=== PATIENT | female | born 1970 | race Caucasian/White ===

== ENCOUNTER 2017-03-27 08:27 | Emergency (ER) | payer OTHER ==
[2017-03-27] MEDS ORDERED: Ondansetron TAB* 4 MG PO ONE (09:00)
[2017-03-27 09:17] LABS: ABS Basophils 0.1 10^3/ul (0-0.2); ABS Eosinophils 0.2 10^3/ul (0-0.6); ABS Neutrophils 7.9 10^3/ul (1.5-7.7); ABS Nucleated RBC 0 10^3/ul; Eosinophil % 1.5 % (0-6); Hematocrit 38 % (35-47); Hemoglobin 12.5 g/dl (12.0-16.0); Lymphocyte % 17.9 % (25-47); Mean Corpuscular HGB Conc 33 g/dl (31-36); Mean Corpuscular Hemoglobin 28 pg (27-31); Mean Corpuscular Volume 85 fL (80-97); Mean Platelet Volume 7 um3 (7.4-10.4); Nucleated Red Blood Cells % 0.1; Platelet Count 355 10^3/ul (150-450); Red Blood Count 4.46 10^6/ul (4.0-5.4); Red Cell Distribution Width 14 % (10.5-15); White Blood Count 11.2 10^3/ul (3.5-10.8)
[2017-03-27 09:36] LABS: INR 0.9 (0.77-1.02)
[2017-03-27 09:45] LABS: EGFR Non-African American 78.8 (>60)
[2017-03-27] MEDS ORDERED: Iohexol 300* (CONTRAST) 10 ML SDV IV ONE (10:54)
[2017-03-27 11:34] LABS: Urine Appearance Clear; Urine Blood 1+ (Negative); Urine Color Straw; Urine Ketones Negative (Negative); Urine Protein Negative (Negative); Urine Specific Gravity 1.011 (1.010-1.030); Urine Urobilinogen Negative (Negative)
--- NOTE | 2017-03-27 11:44 | RAD ---
INDICATION: Left lower quadrant abdominal pain. COMPARISON: There are no prior studies available for comparison. TECHNIQUE: A CT scan of the abdomen and pelvis was performed with intravenous and oral contrast following intravenous injection of 121 ml of Omnipaque 300 nonionic contrast. Contiguous axial sections were obtained from the lung bases through the symphysis pubis. Images were reconstructed in the coronal and sagittal planes. FINDINGS: There is mild dependent bilateral lower lobe subsegmental atelectasis. No pleural effusion is present. The liver and spleen are normal in size without significant focal abnormality. The liver is decreased in attenuation consistent with fatty infiltration. No calcified gallstones are noted. The pancreas appears to be within normal limits. The kidneys and adrenal glands are normal in size. No hydronephrosis is seen. No significant focal renal abnormality is seen. The aorta is normal in caliber and demonstrates homogeneous contrast opacification. No significant enlarged retroperitoneal lymph nodes are seen. There is a small hiatal hernia. The stomach, small and large bowel appear nondistended. The patient is status post appendectomy by history. There is mild descending and sigmoid diverticulosis. In addition there is a focal area of wall thickening in the distal descending colon with interstitial stranding in the adjacent mesenteric fat and a small amount of adjacent free intraperitoneal fluid in the left paracolic gutter. These findings are nonspecific although most consistent with diverticulitis. No abscess is seen. No free intraperitoneal air is seen. The patient is status post hysterectomy. There is an oval-shaped structure with several small cystic areas adjacent to the proximal sigmoid colon likely representing a remaining left ovary measuring 4.4 x 2.8 x 2.4 cm in size. No significant focal osseous abnormality is seen. IMPRESSION: 1. FINDINGS MOST CONSISTENT WITH DIVERTICULITIS INVOLVING THE DISTAL DESCENDING COLON. 2. STATUS POST HYSTERECTOMY. THERE IS A SMALL MULTICYSTIC STRUCTURE ADJACENT TO THE PROXIMAL SIGMOID COLON LIKELY REPRESENTING THE LEFT OVARY. RECOMMEND CORRELATION WITH THE PATIENT'S SURGICAL HISTORY. IF THERE IS UNCERTAINTY THIS CAN BE FURTHER EVALUATED WITH A PELVIC ULTRASOUND. 3. HEPATIC STEATOSIS.
[2017-03-27] MEDS ORDERED: Ciprofloxacin 400MG IVPREMIX(* 400 MG/200 ML BAG IVPB ONE (13:23)
[2017-03-27] MEDS ORDERED: metroNIDAZOLE IV 500 MG/100ML* 500 MG/100 ML BAG IVPB ONE (13:23)
[2017-03-27] MEDS ORDERED: Acetaminophen TAB* 325 MG PO ONE (13:25)
[2017-03-27] MEDS ORDERED: Acetaminophen TAB* 325 MG ONE (13:26)
--- NOTE | 2017-03-27 15:24 | ED ---
Benjy Gomez Natalie, scribed for Sharath Johns MD on 03/27/17 at 0906 . Abdominal Pain/Female - HPI Summary HPI Summary: The pt is a 46 y/o F presenting to the ED c/o constant LLQ abd pain worsening in the last week. The pain started as back pain a few months ago, but started moving towards her left lower abd. The pain is described as cramping and feeling like labor pains. The pain is rated 7/10. The pain is aggravated by movement and is alleviated by nothing. The pt has taken Aleve DIDACTIC INSTRUCTOR to no relief. Pt additionally c/o fever (on 03/22/17), vomiting (once after eating), pelvic tenderness, and constipation. Pt denies dysuria and hematuria. She has had two hysterectomies, but still has left ovary, and a cholecystectomy. - History of Current Complaint Chief Complaint: EDAbdPain Stated Complaint: LOWER ABD PAIN Hx Obtained From: Patient Onset/Duration: Gradual Onset, Lasting Days, Still Present Timing: Constant Severity Initially: Moderate Severity Currently: Moderate Pain Intensity: 7 Pain Scale Used: 0-10 Numeric Location: Discrete At: LLQ Radiates: Yes Radiates to: Back Character: Cramping, Other: - "feeling like labor pains" Aggravating Factor(s): Movement Alleviating Factor(s): Nothing Associated Signs and Symptoms: Positive: Fever, Back Pain, Constipation, Vomiting, Other: - POSITIVE: pelvic tenderness; NEGATIVE: dysuria, hematuria Allergies/Adverse Reactions: Allergies Allergy/AdvReac Type Severity Reaction Status Date / Time Menthol Allergy Severe Anaphylatic Verified 03/27/17 08:33 [From Robitussin Liquid Head Shock & Chest Celio] Phenylephrine Allergy Severe Anaphylatic Verified 03/27/17 08:33 [From Robitussin Liquid Head Shock & Chest Celio] Propylene Glycol Allergy Severe Anaphylatic Verified 03/27/17 08:33 [From Robitussin Liquid Head Shock & Chest Celio] Red Dye Allergy Severe Anaphylatic Verified 03/27/17 08:33 [From Robitussin Liquid Head Shock & Chest Celio] Sodium Benzoate Allergy Severe Anaphylatic Verified 03/27/17 08:33 [From Robitussin Liquid Head Shock & Chest Celio] PMH/Surg Hx/FS Hx/Imm Hx Previously Healthy: Yes Opthamlomology History: Denies: Hx Legally Blind EENT History: Denies: Hx Deafness - Immunization History Immunizations Up to Date: Yes Infectious Disease History: No Infectious Disease History: Denies: Traveled Outside the [place] in Last 30 Days - Family History Known Family History: Positive: Other - hypercholesterolemia Negative: Cardiac Disease, Hypertension, Diabetes - Social History Alcohol Use: None Substance Use Type: Reports: None Smoking Status (MU): Never Smoked Tobacco Review of Systems Positive: Fever Positive: Abdominal Pain - LLQ, Vomiting, Other - constipation Negative: dysuria, hematuria Positive: Other - left back pain All Other Systems Reviewed And Are Negative: Yes Physical Exam - Summary Physical Exam Summary: Appearance: Well-appearing, Well-nourished, No acute distress Skin: Warm, dry Eyes: Normal ENT: Normal, Moist mucous membranes Neck: Supple, nontender Respiratory: Lungs clear to auscultation bliaterally Cardiovascular: Normal, No rubs or murmurs Abdomen: Soft, Moderate tenderness to LLQ without rebound or guarding, No masses present Bowel: Present Musculoskeletal: Normal, Strength/ROM Intact, No CVA tenderness bilaterally Neurological: Normal, A&Ox3, Normal strength and sensation in all four extremities Psychiatric: Normal Triage Information Reviewed: Yes Vital Signs On Initial Exam: Initial Vitals Temp Pulse Resp BP Pulse Ox 98.0 F 82 16 124/93 100 03/27/17 08:29 03/27/17 08:29 03/27/17 08:29 03/27/17 08:29 03/27/17 08:29 Vital Signs Reviewed: Yes - [place] Coma Scale Coma Scale Total: 15 Diagnostics - Vital Signs Vital Signs Temp Pulse Resp BP Pulse Ox 03/27/17 08:46 99.6 F 70 18 112/77 03/27/17 08:29 98.0 F 82 16 124/93 100 - Laboratory Lab Results: Lab Results 03/27/17 03/27/17 03/27/17 Range/Units 09:06 09:06 09:06 WBC 11.2 H (3.5-10.8) 10^3/ul RBC 4.46 (4.0-5.4) 10^6/ul Hgb 12.5 (12.0-16.0) g/dl Hct 38 (35-47) % MCV 85 (80-97) fL MCH 28 (27-31) pg MCHC 33 (31-36) g/dl RDW 14 (10.5-15) % Plt Count 355 (150-450) 10^3/ul MPV 7 L (7.4-10.4) um3 Neut % (Auto) 70.8 (38-83) % Lymph % (Auto) 17.9 L (25-47) % [place] % (Auto) 9.3 H (1-9) % Eos % (Auto) 1.5 (0-6) % Baso % (Auto) 0.5 (0-2) % Absolute Neuts (auto) 7.9 H (1.5-7.7) 10^3/ul Absolute Lymphs (auto) 2.0 (1.0-4.8) 10^3/ul Absolute Monos (auto) 1.0 H (0-0.8) 10^3/ul Absolute Eos (auto) 0.2 (0-0.6) 10^3/ul Absolute Basos (auto) 0.1 (0-0.2) 10^3/ul Absolute Nucleated RBC 0 10^3/ul Nucleated RBC % 0.1 INR (Anticoag Therapy) 0.90 (0.77-1.02) APTT 29.5 (26.0-36.3) seconds Sodium 135 (133-145) mmol/L Potassium 4.0 (3.5-5.0) mmol/L Chloride 103 (101-111) mmol/L Carbon Dioxide 25 (22-32) mmol/L Anion Gap 7 (2-11) mmol/L BUN 14 (6-24) mg/dL Creatinine 0.78 (0.51-0.95) mg/dL Est GFR ( Amer) 101.4 (>60) Est GFR (Non-Af Amer) 78.8 (>60) BUN/Creatinine Ratio 17.9 (8-20) Glucose 100 (70-100) mg/dL Calcium 9.6 (8.6-10.3) mg/dL Magnesium 1.9 (1.9-2.7) mg/dL Total Bilirubin 0.30 (0.2-1.0) mg/dL AST 11 L (13-39) U/L ALT 14 (7-52) U/L Alkaline Phosphatase 60 (34-104) U/L Total Protein 7.5 (6.4-8.9) g/dL Albumin 4.0 (3.2-5.2) g/dL Globulin 3.5 (2-4) g/dL Albumin/Globulin Ratio 1.1 (1-3) Lipase 43 (11.0-82.0) U/L Urine Color Urine Appearance Urine pH (5-9) Ur Specific [place] (1.010-1.030) Urine Protein (Negative) Urine Ketones (Negative) Urine Blood (Negative) Urine Nitrate (Negative) Urine Bilirubin (Negative) Urine Urobilinogen (Negative) Ur Leukocyte Esterase (Negative) Urine WBC (Auto) (Absent) Urine RBC (Auto) (Absent) Urine Bacteria (Absent) Urine Glucose (Negative) 03/27/17 Range/Units 10:00 WBC (3.5-10.8) 10^3/ul RBC (4.0-5.4) 10^6/ul Hgb (12.0-16.0) g/dl Hct (35-47) % MCV (80-97) fL MCH (27-31) pg MCHC (31-36) g/dl RDW (10.5-15) % Plt Count (150-450) 10^3/ul MPV (7.4-10.4) um3 Neut % (Auto) (38-83) % Lymph % (Auto) (25-47) % [place] % (Auto) (1-9) % Eos % (Auto) (0-6) % Baso % (Auto) (0-2) % Absolute Neuts (auto) (1.5-7.7) 10^3/ul Absolute Lymphs (auto) (1.0-4.8) 10^3/ul Absolute Monos (auto) (0-0.8) 10^3/ul Absolute Eos (auto) (0-0.6) 10^3/ul Absolute Basos (auto) (0-0.2) 10^3/ul Absolute Nucleated RBC 10^3/ul Nucleated RBC % INR (Anticoag Therapy) (0.77-1.02) APTT (26.0-36.3) seconds Sodium (133-145) mmol/L Potassium (3.5-5.0) mmol/L Chloride (101-111) mmol/L Carbon Dioxide (22-32) mmol/L Anion Gap (2-11) mmol/L BUN (6-24) mg/dL Creatinine (0.51-0.95) mg/dL Est GFR ( Amer) (>60) Est GFR (Non-Af Amer) (>60) BUN/Creatinine Ratio (8-20) Glucose (70-100) mg/dL Calcium (8.6-10.3) mg/dL Magnesium (1.9-2.7) mg/dL Total Bilirubin (0.2-1.0) mg/dL AST (13-39) U/L ALT (7-52) U/L Alkaline Phosphatase (34-104) U/L Total Protein (6.4-8.9) g/dL Albumin (3.2-5.2) g/dL Globulin (2-4) g/dL Albumin/Globulin Ratio (1-3) Lipase (11.0-82.0) U/L Urine Color Straw Urine Appearance Clear Urine pH 6.0 (5-9) Ur Specific [place] 1.011 (1.010-1.030) Urine Protein Negative (Negative) Urine Ketones Negative (Negative) Urine Blood 1+ H (Negative) Urine Nitrate Negative (Negative) Urine Bilirubin Negative (Negative) Urine Urobilinogen Negative (Negative) Ur Leukocyte Esterase Negative (Negative) Urine WBC (Auto) Absent (Absent) Urine RBC (Auto) Trace(0-2/hpf) (Absent) Urine Bacteria Absent (Absent) Urine Glucose Negative (Negative) Result Diagrams: 03/27/17 09:06 03/27/17 09:06 Lab Statement: Any lab studies that have been ordered have been reviewed, and results considered in the medical decision making process. - CT CT Abd/Pel CT Interpretation: Positive (See Comments) - 1. Findings most consistent with diverticulitis involving the distal descending colon. 2. Status post hysterectomy. There is a small multicystic structure adjacent to the Proximal sigmoid colon likely representing the left ovary. Recommend correlation with the Patient's surgical history. If there is uncertainty this can be further evaluated with a Pelvic ultrasound. 3. Hepatic steatosis. ED physician has reviewed this report. CT Interpretation Completed By: Radiologist Re-Evaluation - Re-Evaluation First Eval Re-Evaluation Time: 14:30 Change: Improved - pain improving, able to tolerate PO Abdominal Pain Fem Course/Dx - Course Course Of Treatment: pt seen to have uncomplicated diverticulitis, feels well, given 1 dose of iv abx and prescription for continuing abx, instructed to return for worsening sxs and to schedule outpatient surgery cilnic appt for elective procedure, agrees to and understnads dc instructions. - Diagnoses Provider Diagnoses: Diverticulitis Discharge - Discharge Plan Condition: Improved Disposition: HOME Prescriptions: Ciprofloxacin TAB* [Cipro 500 MG TAB*] 500 mg PO BID #28 tab Metronidazole [Flagyl 500 MG TAB] 500 mg PO TID #42 tab Patient Education Materials: Diverticulitis (ED) Referrals: Darnell Feliz MD [Primary Care Provider] - Noe Hester MD [Medical Doctor] - Additional Instructions: PLEASE MAKE AN APPOINTMENT WITH GEN SURGEON DR. HESTER FOR ELECTIVE PROCEDURE IF INDICATED PLEASE RETURN IMMEDIATELY TO THE ER IF YOU HAVE ANY WORSENING OR CONCERNING SYMPTOMS PLEASE MAKE AN APPOINTMENT TO BE SEEN BY YOUR PRIMARY CARE DOCTOR WITHIN 1 WEEK The documentation as recorded by the Benjy burgess Natalie accurately reflects the service I personally performed and the decisions made by me, Sharath Johns MD.
[2017-03-27 15:35] VITALS: BP 107/64
== END 2017-03-27 15:34 | disposition home or self-care (01) ==
LOC: ED 08:27
DX: K57.92 Diverticulitis of intestine, part unspecified, without perforation or abscess without bleeding (principal); R50.9 Fever, unspecified; M54.9 Dorsalgia, unspecified; K59.00 Constipation, unspecified; R11.10 Vomiting, unspecified; R10.32 Left lower quadrant pain
CPT/HCPCS: 36415; 74177; 80053; 81003; 81015; 83690; 83735; 85025; 85610; 85730; 96365; 99283; A9270-GY; J0744; J3490; Q9967

== ENCOUNTER 2018-09-01 10:39 | Emergency (ER) | payer OTHER ==
[2018-09-01] MEDS ORDERED: Ibuprofen TAB* 800 MG PO ONE (11:01)
--- NOTE | 2018-09-01 11:05 | ED ---
Lower Extremity - HPI Summary HPI Summary: Patient is a 48-year-old female who presents emergency department for left foot injury that occurred just prior to arrival. Patient works at a [employer] and states that a student. They desk today and landed onto her left foot. No other injuries were sustained. Pain is too great to ambulate. Symptoms are mild in severity. Walking and touching area makes symptoms worse. Nothing makes symptoms better. - History of Current Complaint Chief Complaint: EDExtremityLower Stated Complaint: LEFT FOOT INJURY Time Seen by Provider: 09/01/18 10:56 Hx Obtained From: Patient Pain Intensity: 7 - Allergies/Home Medications Allergies/Adverse Reactions: Allergies Allergy/AdvReac Type Severity Reaction Status Date / Time MS Menthol Allergy Severe Anaphylatic Verified 03/27/17 08:33 [From Robitussin Liquid Head Shock & Chest Celio] MS Phenylephrine Allergy Severe Anaphylatic Verified 03/27/17 08:33 [From Robitussin Liquid Head Shock & Chest Celio] MS Propylene Glycol Allergy Severe Anaphylatic Verified 03/27/17 08:33 [From Robitussin Liquid Head Shock & Chest Celio] MS Red Dye Allergy Severe Anaphylatic Verified 03/27/17 08:33 [From Robitussin Liquid Head Shock & Chest Celio] MS Sodium Benzoate Allergy Severe Anaphylatic Verified 03/27/17 08:33 [From Robitussin Liquid Head Shock & Chest Celio] PMH/Surg Hx/FS Hx/Imm Hx Previously Healthy: Yes Endocrine/Hematology History: Denies: Hx Diabetes Cardiovascular History: Denies: Hx Hypertension History: Denies: Hx Renal Disease Sensory History: Denies: Hx Legally Blind, Hx Deafness Opthamlomology History: Denies: Hx Legally Blind - Surgical History Surgery Procedure, Year, and Place: hysterectomy. x2. appendectomy Infectious Disease History: No Infectious Disease History: Denies: Traveled Outside the [place] in Last 30 Days - Family History Known Family History: Positive: Other - hypercholesterolemia, Non-Contributory Negative: Cardiac Disease, Hypertension, Diabetes - Social History Occupation: Employed Full-time Lives: With Family Alcohol Use: None Substance Use Type: Reports: None Smoking Status (MU): Never Smoked Tobacco Review of Systems Positive: Other - left foot pain and swelling Positive: Other - abrasion to left foot Neurological: Negative Negative: Weakness, Paresthesia, Numbness All Other Systems Reviewed And Are Negative: Yes Physical Exam Triage Information Reviewed: Yes Vital Signs On Initial Exam: Initial Vitals Temp Pulse Resp BP Pulse Ox 97.7 F 82 18 134/81 97 09/01/18 10:44 09/01/18 10:44 09/01/18 10:44 09/01/18 10:44 09/01/18 10:44 Vital Signs Reviewed: Yes Appearance: Positive: Well-Appearing - Pt. sitting in wheelchair in NAD. SO present. Skin: Positive: Warm, Dry Head/Face: Positive: Normal Head/Face Inspection Eyes: Positive: Normal, EOMI, MITUL Neck: Positive: Supple Musculoskeletal: Positive: Other - Moderate edema to the dorsum of left foot with overlying superficial wound. No proximal ankle or tib/fib pain. Neurological: Positive: Normal, CN Intact II-III Psychiatric: Positive: Affect/Mood Appropriate Procedures - Splinting Left Lower Extremity Pre-Made Type: acewrap, post op shoe Pre-Proc Neuro Vasc Exam: normal Diagnostics - Vital Signs Vital Signs Temp Pulse Resp BP Pulse Ox 09/01/18 10:44 97.7 F 82 18 134/81 97 - Laboratory Lab Statement: Any lab studies that have been ordered have been reviewed, and results considered in the medical decision making process. Lower Extremity Course/Dx - Course Course Of Treatment: Foot x-ray is negative for acute findings, reading per radiology. Krish wrap and postop shoe placed. Advised patient to ice and elevate intermittently. Avoid sitting for long periods time. Crutches provided given patient cannot bear full weight. Tylenol or Motrin for pain as directed. Advised patient to follow-up with PCP or orthopedics for repeat imaging in 1-2 weeks if pain persists. Patient understands and agrees. - Diagnoses Differential Diagnosis/HQI/PQRI: Positive: Contusion, Fracture (Closed) Provider Diagnoses: Foot contusion, Abrasion, Hematoma Discharge - Sign-Out/Discharge Documenting (check all that apply): Patient Departure Patient Received Moderate/Deep Sedation with Procedure: No - Discharge Plan Condition: Good Disposition: HOME Patient Education Materials: Foot Contusion (ED), Hematoma (ED) Referrals: Darnell Feliz MD [Primary Care Provider] - Additional Instructions: Follow up with PCP if pain persist for repeat xray in 1-2 weeks Ice and elevate intermittently Tylenol or Motrin for pain as directed Return to ER if symptoms change or worsen - Billing Disposition and Condition Condition: GOOD Disposition: Home - Attestation Statements Provider Attestation: pt seen by midlevel provider independently, based on their assessment, it was not necessary to present the case to me but I was available for consultation. I did not form a physician-patient relationship with the patient. The chart however, has been reviewed.
[2018-09-01 12:16] VITALS: BP 131/80
== END 2018-09-01 12:09 | disposition home or self-care (01) ==
LOC: ED 10:39
DX: S90.32XA Contusion of left foot, initial encounter (principal); S90.812A Abrasion, left foot, initial encounter; W22.8XXA Striking against or struck by other objects, initial encounter; Y92.159 Unspecified place in reform school as the place of occurrence of the external cause; Y99.0 Civilian activity done for income or pay; Z88.8 Allergy status to other drugs, medicaments and biological substances
CPT/HCPCS: 99282; A9270-GY

== ENCOUNTER 2019-05-02 16:23 | Emergency (ER) | payer SELFPAY ==
--- OUTSIDE RECORDS SUMMARY | 2019-05-02 16:39 | XMS REPORT | Continuity of Care Document ---
:1970 External Reference #:[id number] Author Name Larry Finn MD (transmitted by agent of provider Sarah Cosme) Address [address] [place] [address] Care Team Providers Name Role Phone Darnell Feliz MD - Family Care Team Information Save All Operator [phone] Medicine Problems Description No Active Problems Social History Type Date Description Comments Sex Unknown ETOH Use Denies alcohol use Tobacco Use Start: Unknown End: Patient is a former Unknown smoker Tobacco Use Start: Unknown End: Patient is a former Quit 10 years ago Unknown smoker Smoking Status Reviewed: 04/18/19 Patient is a former Quit 10 years ago smoker Exercise Exercises sporadically Type/Frequency Allergies, Adverse Reactions, Alerts Active Allergies Reaction Severity Comments Date Guaifenesin 09/27/2018 Medications Active Medications SIG Qnty Indications Ordering Provider Date Vytorin Unknown 10-10mg Tablets Protonix 1 by mouth every Unknown 20mg Tablets DR day Prozac 1 by mouth every Unknown 20mg Capsules day Rosuvastatin Calcium take 1 tablet by Unknown 10mg mouth every Tablets evening Immunizations Description No Information Available Vital Signs Date Vital Result Comment 04/18/2019 3:52pm Height 64.5 inches 5'4.50" Weight 278.00 lb Heart Rate 62 /min BP Systolic 104 mmHg BP Diastolic 72 mmHg Respiratory Rate 18 /min Pain Level 5 O2 % BldC Oximetry 98 % BMI (Body Mass Index) 47.0 kg/m2 09/27/2018 4:27pm Height 64.5 inches 5'4.50" Weight 184.00 lb Heart Rate 68 /min BP Systolic 112 mmHg BP Diastolic 70 mmHg Respiratory Rate 16 /min BMI (Body Mass Index) 31.1 kg/m2 Results Description No Information Available Procedures Date Code Description Status 04/18/2019 Inject/Drain Joint/Bursa Major W/O US Completed Medical Devices Description No Information Available Encounters Description No Information Available Assessments Date Code Description Provider 04/18/2019 M25.561 Pain in right knee Larry Finn MD 04/18/2019 M25.461 Effusion, right knee Larry Finn MD Plan of Treatment Future Appointment(s):05/30/2019 3:15 pm - Larry Finn MD at [facility] at [facility]04/18/2019 - Larry Finn, MDM25.561 Pain in right kneeNew Xrays:Knee 3 Views RT, Ordered: 04/18/19New Therapy:Physical TherapyFollow up:Follow up: 6 weeks PRNM25.461 Effusion, right knee Functional Status Description No Information Available Mental Status Description No Information Available Referrals Description No Information Available
--- NOTE | 2019-05-02 17:11 | ED ---
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 Denies any other pain, injury or symptoms. - History of Current Complaint Chief Complaint: Kristen Stated Complaint: RIGHT SHOULDER INJURY PER PT Time Seen by Provider: 05/02/19 17:10 Hx Obtained From: Patient Mechanism Of Injury: Other Onset/Duration: Started Hours Ago Timing: Constant Severity Initially: Moderate Severity Currently: Moderate Pain Location: Shoulder Character: Aching, Throbbing Aggravating Factor(s): Movement Alleviating Factor(s): Rest, Ice Associated Signs & Symptoms: Positive: Negative - Allergies/Home Medications Allergies/Adverse Reactions: Allergies Allergy/AdvReac Type Severity Reaction Status Date / Time MS Menthol Allergy Severe Anaphylatic Verified 03/27/17 08:33 [From Robitussin Liquid Head Shock & Chest Celio] MS Phenylephrine Allergy Severe Anaphylatic Verified 03/27/17 08:33 [From Robitussin Liquid Head Shock & Chest Celio] MS Propylene Glycol Allergy Severe Anaphylatic Verified 03/27/17 08:33 [From Robitussin Liquid Head Shock & Chest Celio] MS Red Dye Allergy Severe Anaphylatic Verified 03/27/17 08:33 [From Robitussin Liquid Head Shock & Chest Celio] MS Sodium Benzoate Allergy Severe Anaphylatic Verified 03/27/17 08:33 [From Robitussin Liquid Head Shock & Chest Celio] Home Medications: Home Medications Levothyroxine TAB* [Synthroid TAB*] 100 mcg PO DAILY 05/02/19 [History Confirmed 05/02/19] Pantoprazole TAB * [Protonix TAB*] 40 mg PO DAILY 05/02/19 [History Confirmed ] Rosuvastatin (NF) [Crestor] 20 mg PO DAILY 05/02/19 [History Confirmed 05/02/19] PMH/Surg Hx/FS Hx/Imm Hx Endocrine/Hematology History: Denies: Hx Diabetes Cardiovascular History: Denies: Hx Hypertension History: Denies: Hx Renal Disease Musculoskeletal History: Denies: Hx Gout Sensory History: Denies: Hx Legally Blind, Hx Deafness Opthamlomology History: Denies: Hx Legally Blind EENT History: Denies: Hx Deafness - Surgical History Surgery Procedure, Year, and Place: hysterectomy. x2. appendectomy Infectious Disease History: No Infectious Disease History: Denies: Traveled Outside the [place] in Last 30 Days - Family History Known Family History: Positive: Other - hypercholesterolemia, Non-Contributory Negative: Cardiac Disease, Hypertension, Diabetes - Social History Alcohol Use: None Substance Use Type: Reports: None Smoking Status (MU): Never Smoked Tobacco Review of Systems Constitutional: Negative Eyes: Negative ENT: Negative Cardiovascular: Negative Respiratory: Negative Gastrointestinal: Negative Genitourinary: Negative Musculoskeletal: Other Skin: Negative Neurological/Mental Status: Negative Psychological: Normal All Other Systems Reviewed And Are Negative: Yes Physical Exam - Summary Physical Exam Summary: Full range of motion of right shoulder. No erythema, ecchymosis, deformity, swelling or drainage. Moderate tenderness with palpation over the right trapezius and deltoid muscles. PMS intact distally Triage Information Reviewed: Yes Vital Signs On Initial Exam: Initial Vitals Temp Pulse Resp BP Pulse Ox 97.9 F 70 18 125/71 96 05/02/19 16:24 05/02/19 16:24 05/02/19 16:24 05/02/19 16:24 05/02/19 16:24 Vital Signs Reviewed: Yes Appearance: Positive: Well-Appearing Skin: Positive: Warm Head/Face: Positive: Normal Head/Face Inspection Eyes: Positive: Normal Neck: Positive: Supple Respiratory/Lung Sounds: Positive: Clear to Auscultation Cardiovascular: Positive: Normal Abdomen Description: Positive: Nontender Musculoskeletal: Positive: Normal Neurological: Positive: Normal Psychiatric: Positive: Normal AVPU Assessment: Alert - Jeffrey Coma Scale Best Eye Response: 4 - Spontaneous Best Motor Response: 6 - Obeys Commands Best Verbal Response: 5 - Oriented Coma Scale Total: 15 Procedures - Sedation Patient Received Moderate/Deep Sedation with Procedure: No Diagnostics - Vital Signs Vital Signs Temp Pulse Resp BP Pulse Ox 05/02/19 16:24 97.9 F 70 18 125/71 96 - Laboratory Lab Statement: Any lab studies that have been ordered have been reviewed, and results considered in the medical decision making process. 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 Denies any other pain, injury or symptoms. Vital signs within normal limits. X-ray negative for fracture. - Diagnoses Provider Diagnoses: Shoulder pain, right Discharge ED - Sign-Out/Discharge Documenting (check all that apply): Patient Departure - Discharge Plan Condition: Stable Disposition: HOME Prescriptions: Cyclobenzaprine TAB* [Flexeril 10 MG TAB*] 10 mg PO TID PRN 4 Days #12 tab PRN Reason: Spasms Patient Education Materials: Shoulder Sprain (ED) Forms: *Work Release Referrals: Darnell Feliz MD [Primary Care Provider] - Dominga Maria MD [Medical Doctor] - Additional Instructions: Ice 15 minutes at a time.. Alternate ibuprofen 600 mg with Tylenol 650 mg every 3 hours if needed for shoulder pain. Take Flexeril as directed if needed for muscle spasm. Shoulder gently to maintain range of motion. If symptoms persist more than 5 days follow-up with orthopedics Dr. Maria for further evaluation. - Billing Disposition and Condition Condition: STABLE Disposition: Home
[2019-05-02] MEDS: Ibuprofen TAB* 800 MG PO ONE (17:56)
[2019-05-02 18:21] VITALS: BP 127/72
== END 2019-05-02 18:20 | disposition home or self-care (01) ==
LOC: ED 16:23
DX: M25.511 Pain in right shoulder (principal); X50.9XXA Other and unspecified overexertion or strenuous movements or postures, initial encounter; Y93.F9 Activity, other caregiving; Y92.9 Unspecified place or not applicable; Y99.0 Civilian activity done for income or pay; E03.9 Hypothyroidism, unspecified; Z90.710 Acquired absence of both cervix and uterus; Z90.89 Acquired absence of other organs; Z79.890 Hormone replacement therapy; Z79.899 Other long term (current) drug therapy; Z88.8 Allergy status to other drugs, medicaments and biological substances
CPT/HCPCS: 99282; A9270-GY